=== PATIENT | female | born 1965 | race Caucasian/White ===

== ENCOUNTER 2019-12-11 13:40 | Outpatient (CLI) | payer OTHER | END 2019-12-11 23:59 | disposition home or self-care (01) | LOC: COV 13:40 | PROVIDERS: ATTEND Family Medicine | DX: Z20.828 Contact with and (suspected) exposure to other viral communicable diseases (principal) ==

== ENCOUNTER 2020-11-20 16:27 | Outpatient (CLI) | payer SELFPAY | END 2020-11-20 16:28 | disposition home or self-care (01) | LOC: COV 16:27 | PROVIDERS: ATTEND Family Medicine | DX: Z20.822 Contact with and (suspected) exposure to COVID-19 (principal) ==

== ENCOUNTER 2021-11-03 18:08 | Emergency (ER) | payer SELFPAY ==
--- NOTE | 2021-11-03 20:01 | XRAY Report ---
PROCEDURE: Forearm LT INDICATIONS: fall, arm pain TECHNIQUE: 2 views of the forearm were acquired. COMPARISON: None FINDINGS: Bones: No fractures or dislocations. No suspicious bony lesions. Soft tissues: No suspicious soft tissue calcifications or masses. IMPRESSION: No acute fracture. No osseous lesion. If symptoms and/or clinical suspicion for pathology continue, f urther assessment with repeat plain films, or advanced imaging (e.g., CT, MRI, or bone scan) is recom mended for further assessment. Reviewed by: Christiano Dunham MD on 11/03/2021 8:00 PM PDT Approved by: Christiano Dunham MD on 11/03/2021 8:00 PM PDT Station ID: [id number]
--- NOTE | 2021-11-03 20:02 | XRAY Report ---
PROCEDURE: Wrist 4 View LT INDICATIONS: fall, wrist pain TECHNIQUE: 4 views of the wrist were acquired. COMPARISON: None FINDINGS: Bones: No fractures or dislocations. No suspicious bony lesions. Scaphoid view: Negative Soft tissues: No suspicious soft tissue calcifications. IMPRESSION: No acute fracture. No osseous lesion. If symptoms and/or clinical suspicion for pathology continue, f urther assessment with repeat plain films, or advanced imaging (e.g., CT, MRI, or bone scan) is recom mended for further assessment. Reviewed by: Christiano Dunham MD on 11/03/2021 8:01 PM PDT Approved by: Christiano Dunham MD on 11/03/2021 8:01 PM PDT Station ID: [id number]
--- NOTE | 2021-11-03 20:03 | CT Report ---
PROCEDURE: HEAD WO INDICATIONS: fall, neck/head pain TECHNIQUE: Noncontrast 4.5 mm thick angled axial sections acquired from the foramen magnum to the vertex. For r adiation dose reduction, the following was used: automated exposure control, adjustment of mA and/or kV according to patient size. COMPARISON: None. FINDINGS: Image quality: Excellent. CSF spaces: Basal cisterns are patent. No extra-axial fluid collections. Ventricles are normal in size and shape. Brain: No midline shift. No intracranial masses or hemorrhage. Billy-white matter interface is norm al. Skull and face: Calvarium and visualized facial bones are intact, without suspicious lesions. Sinuses: Visualized sinuses and mastoids are clear. IMPRESSION: No acute intracranial abnormality. Reviewed by: Christiano Dunham MD on 11/03/2021 8:01 PM PDT Approved by: Christiano Dunham MD on 11/03/2021 8:01 PM PDT Station ID: [id number]
--- NOTE | 2021-11-03 20:05 | CT Report ---
PROCEDURE: CERVICAL SPINE WO INDICATIONS: fall, neck/head pain TECHNIQUE: Noncontrast 3 mm thick sections acquired from the skull base to the T4 level. Sagittal and coronal r eformats were then constructed. For radiation dose reduction, the following was used: automated exp osure control, adjustment of mA and/or kV according to patient size. COMPARISON: None. FINDINGS: Image quality: Excellent. Bones: No fractures or dislocations. Visualized superior ribs are intact. Soft tissues: Prevertebral soft tissues are normal in thickness. No paravertebral hematomas. No ap ical pneumothoraces. IMPRESSION: No fracture. Reviewed by: Christiano Dunham MD on 11/03/2021 8:03 PM PDT Approved by: Christiano Dunham MD on 11/03/2021 8:03 PM PDT Station ID: [id number]
--- NOTE | 2021-11-03 20:10 | ED Physician Documentation ---
PD HPI HEAD INJURY - Stated complaint Stated Complaint: FOREHEAD LAC - Chief complaint Chief Complaint: Laceration - History obtained from History obtained from: Patient - History of Present Illness Mechanism of head injury: Fell Where head injury occurred: Other (parking lot) Timing - onset: Enter time (16:00), Today Pain level now: 6 Location of injury: Left Quality of pain: Pain Associated symptoms: No: LOC, AMS, Amnesia, Nausea / vomiting, Neck pain Similar symptoms before: Has not had sx before Recently seen: Not recently seen - Additional information Additional information: approximately 4 PM today, patient was walking in a parking lot while her car was being worked on. She slipped on what she thinks was an oil slick, with the fall causing forehead laceration and sudden onset left FA and left wrist pain. Denies LOC. Unsure of tetanus status, thinks it has been more than 10 years Review of Systems Skin: reports: Laceration (s) (forehead) Musculoskeletal: reports: Extremity pain, Joint pain. denies: Neck pain, Back pain, Extremity swelling, Joint swelling, Pain with weight bearing Neurologic: denies: Generalized weakness, Focal weakness, Numbness, Headache PD PAST MEDICAL HISTORY - Past Medical History Past Medical History: No - Past Surgical History Past Surgical History: No - Present Medications Home Medications: Ambulatory Orders Medication Instructions Recorded Confirmed No Known Home Medications 11/03/21 11/03/21 - Allergies Allergies/Adverse Reactions: Allergies Allergy/AdvReac Type Severity Reaction Status Date / Time barium iodide Allergy Anaphylaxis Verified 11/03/21 18:29 - Social History Does the pt smoke?: No Smoking Status: Never smoker Does the pt drink ETOH?: Yes Does the pt have substance abuse?: No - Immunizations Immunizations are current?: Yes PD ED PE NORMAL - Vitals Vital signs reviewed: Yes - General General: Alert and oriented X 3, No acute distress, Well developed/nourished - Neck Neck: No bony TTP - Extremities Extremities: No deformity PD ED PE EXPANDED - HEENT HEENT Visual: 1 - laceration (2) - Extremities Extremities: Limited ROM (left FA/wrist with limited ROM (limited pronation, limited wrist flexion/extension; due to pain)), Motor intact, Sensory intact, Vascular intact, Tendon intact. No: Deformity, Swelling, Bruising, Abrasion, Laceration Results - Vitals Vitals: Vital Signs - 24 hr 11/03/21 11/03/21 18:22 22:07 Temperature 37.4 C 37.2 C Heart Rate 88 79 Respiratory 16 16 Rate Blood Pressure 158/75 H 141/72 H O2 Saturation 98 99 Oxygen O2 Source Room air - Rads (name of study) CT cervical spine Radiology: Prelim report reviewed, See rad report left forearm xrays Radiology: Prelim report reviewed, See rad report left wrist xrays Radiology: Prelim report reviewed, See rad report CT head Radiology: Prelim report reviewed, See rad report Procedures - Laceration (location) Face left Length in cm: 2 Wound type: Linear, Into subcut fat, Clean Neurovascular status: Sensory intact, Motor intact, Vascular intact Anesthesia: Lidocaine 1% Wound preparation: Chlorhexadine, Irrigated copiously NS Skin layer closure: Nylon, Running, Size #-0 - enter number (5-0) Other: Patient tolerated well, No complications, Neurovascular intact, Dressing applied, Tetanus booster given PD MEDICAL DECISION MAKING - ED course Complexity details: reviewed results, re-evaluated patient, considered differential, d/w patient ED course: slipped and fell in parking lot, presents with chief complaint of left wrist/FA pain as well as forehead laceration. CT head, neck are without concerning fin dings, and no acute injury indicated on plain film xrays of left FA and wrist. The forehead laceration is repaired as noted above. Results d/w patient, return precautions reviewed. Splint and sling placed (left wrist/LUE) for comfort. Departure - Departure Disposition: 01 Home, Self Care Clinical Impression: Laceration Left wrist sprain Qualifiers: Encounter type: initial encounter Qualified Code(s): S63.502A - Unspecified sprain of left wrist, initial encounter Condition: Good Instructions: ED Laceration Facial Sutr Tape, ED Sling, ED Sprain Wrist Comments: Follow up with your primary care provider in 1 week for removal of the stitches as well as reevaluation of the left forearm/wrist injury. Discharge Date/Time: 11/03/21 22:08
[2021-11-03] MEDS ORDERED: LIDOCAINE 1% 2 ML VIAL SUBQ STA (20:18)
[2021-11-03] MEDS ORDERED: IBUPROFEN 600 MG TABLET PO STA (20:23)
[2021-11-03] MEDS ORDERED: TETANUS/DIPHTHERIA/PERTUSSIS 0.5 ML SYRINGE IM ONE (20:23)
[2021-11-03] MEDS ORDERED: BACITRACIN ZINC OINT 1 PACKET TOP STA (21:53)
[2021-11-03 22:09] VITALS: BP 141/72
== END 2021-11-03 22:08 | disposition home or self-care (01) ==
LOC: ED 18:08
DX: S01.81XA Laceration without foreign body of other part of head, initial encounter (principal); W01.0XXA Fall on same level from slipping, tripping and stumbling without subsequent striking against object, initial encounter; Y93.01 Activity, walking, marching and hiking; Y92.481 Parking lot as the place of occurrence of the external cause
CPT/HCPCS: 12011; 70450; 72125; 73090; 73110; 90471; 90715; 99282; 99284; A9270